=== PATIENT | male | born 1985 | race Caucasian/White ===

== ENCOUNTER 2017-01-11 15:52 | Emergency (ER) | payer SELFPAY ==
[2017-01-11 16:18] VITALS: BP 125/83
[2017-01-11] MEDS ORDERED: PATIENT OWN MED 1 EACH EACH IM ONE (16:28)
--- NOTE | 2017-01-11 16:33 | ED Physician Documentation ---
General Adult - HISTORIAN Historian: patient - HPI Chief Complaint: General Adult Further Comments: yes (Patient has a history schizophrenia and takes Risperdal consta 50mg every two weeks. Patient had his physician (Dr. Adrián Faria) call inn medication. He comes in to have it injected.) - PAST HX Past History: other (social anxiety, depression) Surgeries/Procedures: none (T & A,) Immunizations: referred to PCP Allergies/Adverse Reactions: Allergies Allergy/AdvReac Type Severity Reaction Status Date / Time No Known Allergies Allergy Verified 01/11/17 16:17 Home Medications: Ambulatory Orders Medication Instructions Recorded Benztropine Mesylate [Cogentin] 0.5 mg PO DAILY 01/11/17 Risperidone Microspheres 50 mg IM Q14D 01/11/17 [Risperdal Consta] Risperidone [Risperdal] 1 mg PO BID 01/11/17 - SOCIAL HX Smoking History: greater than 1 pack/day (1 ppd) Alcohol Use: rarely Drug Use: marijuana - FAMILY HX Family History: Yes (diabetes) - REVIEWED ASSESSMENTS Nursing Assessment Reviewed: Yes Vitals Reviewed: Yes General Adult Physical Exam - PHYSICAL EXAM GENERAL APPEARANCE: no distress NECK: normal inspection RESPIRATORY: no resp distress, chest non-tender, breath sounds normal. No: wheezes, rales CVS: reg rate & rhythm, heart sounds normal, equal pulses ABDOMEN: soft, no organomegaly BACK: normal inspection SKIN: warm/dry NEURO: oriented X3, CN's nml as tested Discharge Clincal Impression: Schizophrenia Referrals: Primary Doctor,No [Primary Care Provider] - 2 Days Additional Instructions: Get established with primary care provider. Try to get medical records from your physician. Home Medications: Ambulatory Orders Benztropine Mesylate [Cogentin] 0.5 mg PO DAILY 01/11/17 Risperidone Microspheres [Risperdal Consta] 50 mg IM Q14D 01/11/17 Risperidone [Risperdal] 1 mg PO BID 01/11/17 Condition: Stable Disposition: 01 HOME, SELF-CARE Decision to Admit: NO Date of Decison to Admit: 01/11/17 Decision Time: 16:22
== END 2017-01-11 16:40 | disposition home or self-care (01) ==
LOC: ED 15:52
DX: F20.9 Schizophrenia, unspecified (principal)
CPT/HCPCS: 99283

== ENCOUNTER 2018-03-14 17:24 | Emergency (ER) | payer OTHER ==
--- NOTE | 2018-03-14 17:32 | ED Physician Documentation ---
General Adult - HISTORIAN Historian: patient - HPI Stated Complaint: toenail avulsion Chief Complaint: Foot Injury Onset: minutes (45) Timing: still present Severity: mild Further Comments: yes (He states he was moving a couch and he had sandals on when he was moving the couch it dropped on his foot. Nearly pulling his toenail off. He has no pain but the area did bleed. No other complaints) - ROS CONST: no problems - PAST HX Past History: other (mental illness ) Immunizations: tetanus Allergies/Adverse Reactions: Allergies Allergy/AdvReac Type Severity Reaction Status Date / Time No Known Allergies Allergy Verified 03/14/18 17:39 Home Medications: Ambulatory Orders Medication Instructions Recorded Risperidone Microspheres 50 mg IM Q14D 01/11/17 [Risperdal Consta] - SOCIAL HX Smoking History: non-smoker Alcohol Use: none Drug Use: none - FAMILY HX Family History: No - VITAL SIGNS Vital Signs: Vital Signs Temp Pulse Resp BP Pulse Ox 125/83 01/11/17 16:10 - REVIEWED ASSESSMENTS Nursing Assessment Reviewed: Yes Vitals Reviewed: Yes Procedures Progress: left great toenail removed due to partial avulsion No complaints Dressing applied General Adult Physical Exam - PHYSICAL EXAM GENERAL APPEARANCE: no distress EENT: eye inspection normal, ENT inspection normal, pharynx normal, no signs of dehydration NECK: normal inspection RESPIRATORY: no resp distress, chest non-tender, breath sounds normal CVS: reg rate & rhythm, heart sounds normal, no murmur ABDOMEN: soft, normal bowel sounds SKIN: warm/dry, normal color EXTREMITIES: non-tender NEURO: oriented X3, CN's nml as tested, motor nml, sensation nml, mood/affect nml, cognition normal Discharge Clincal Impression: Avulsion of toenail Qualifiers: Encounter type: initial encounter Qualified Code(s): S91.209A - Unspecified open wound of unspecified toe(s) with damage to nail, initial encounter Referrals: Primary Doctor,No [Primary Care Provider] - 2 Days Additional Instructions: 1. Bactrim DS take 1 by mouth BID x 10 days 2. Keep area clean and dry 3. Ice if needed for pain 4. Tylenol or Ibuprofen for pain as directed 5. See PCP in 2-4 days if any redness, increased pain or other concerns 6. Return to ER for uncontrolled pain or uncontrolled bleeding, Signs of infection Condition: Stable Disposition: 01 HOME, SELF-CARE Decision to Admit: NO Date of Decison to Admit: 03/14/18 Decision Time: 17:55
[2018-03-14] MEDS: NEOMYCIN/BACITRACIN/POLYMYXINB 1 EACH OINT.PACK TP ONE (18:00)
[2018-03-14] MEDS: DIPH,PERTUSS(ACELL),TET VAC/PF 0.5 ML DISP.SYRIN IM ONE (18:00)
[2018-03-14 18:19] VITALS: BP 132/74
== END 2018-03-14 18:13 | disposition home or self-care (01) ==
LOC: ED 17:24
DX: S91.202A Unspecified open wound of left great toe with damage to nail, initial encounter (principal); W23.0XXA Caught, crushed, jammed, or pinched between moving objects, initial encounter; Y92.9 Unspecified place or not applicable; Y93.9 Activity, unspecified; Y99.9 Unspecified external cause status
CPT/HCPCS: 11730; 90471; 90715